=== PATIENT | male | born 1980 | race African-American/Black ===

== ENCOUNTER 2018-04-22 00:13 | Inpatient (IN) ==
[2018-04-22] MEDS ORDERED: CLINDAMYCIN INJ 600 MG in PREMIX 1 EACH IV STA (00:35)
[2018-04-22 01:18] LABS: Albumin 2.2 G/DL (3.4-5.0); Bilirubin,Total 0.9 MG/DL (0.2-1.0); Potassium 3.8 MMOL/L (3.5-5.1); Total Protein 7.6 G/DL (6.4-8.3)
[2018-04-22 01:31] LABS: Basophils % 0.1 % (0.0-0.8); Eosinophils % 0.3 % (0.00-10.9); Hemoglobin 11.2 GM/DL (14.0-18.0); Immature Granulocytes % 0.9 %; Immature Granulocytes Absolute 0.14 #; Lymphocytes # 1.3 10*3/uL (1.4-4.0); Mean Corpuscular Hemoglobin 30 PG (27-34); Mean Corpuscular Volume 93.6 FL (87-102); Mean Platelet Volume 11.4 FL (9.6-12.0); Monocytes # 1.2 10*3/uL (0.11-0.8); Monocytes % 7.3 % (1.7-12.7); Neutrophils # 13.2 10*3/uL (1.4-7.4); Neutrophils % 83.4 % (38.7-73.9); Platelet Count 285 T/CUMM (130-400); Red Blood Count 3.74 MC/CUMM (3.8-5.5); Red Cell Distribution Width 13.3 % (9.3-17.3); White Blood Count 15.8 T/CUMM (4-12)
[2018-04-22] MEDS ORDERED: ACETAMINOPHEN 325 MG TABLET PO PRN (01:42)
[2018-04-22] MEDS ORDERED: ONDANSETRON 4 MG/2 ML VIAL IV PRN ×2 (01:42→08:50)
[2018-04-22 02:03] LABS: Band Neutrophils 2 % (0-10); Lymphocytes 8 % (20-55); Segmented Neutrophils 80 % (50-85)
[2018-04-22 02:05] LABS: Platelet Estimate Adequate; Total Cells Counted 100
[2018-04-22 02:16] LABS: PT Patient Result 10.8 SECS
[2018-04-22] MEDS: PIPERACILLIN/TAZOBACTAM 3,375 MG in SODIUM CHLORIDE 0.9% 100 ML IV SCH ×3 (03:12→20:54)
[2018-04-22] MEDS: SODIUM CHLORIDE 0.45% 1,000 ML IV SCH ×3 (03:12→18:44)
[2018-04-22] MEDS ORDERED: LIDOCAINE 1%/EPI INJ 20 ML VIAL ONE (06:51)
[2018-04-22] MEDS ORDERED: BUPIVACAINE 0.5% 50 ML VIAL ONE (06:51)
[2018-04-22] MEDS ORDERED: PROPOFOL 200 MG/20 ML VIAL IV ONE (08:48)
[2018-04-22] MEDS ORDERED: fentaNYL 100 MCG/2 ML VIAL ONE (08:48)
[2018-04-22] MEDS ORDERED: MIDAZOLAM 2 MG/2 ML VIAL ONE (08:48)
[2018-04-22] MEDS ORDERED: HYDROmorphone 2 MG/1 ML VIAL ONE (08:49)
[2018-04-22] MEDS ORDERED: ONDANSETRON 4 MG/2 ML VIAL ONE (08:49)
[2018-04-22] MEDS: HYDROmorphone 2 MG/1 ML VIAL IV PRN ×4 (08:54→09:14)
[2018-04-22] MEDS: ENOXAPARIN 40 MG/0.4 ML SYRINGE SUBCUT SCH (09:58)
[2018-04-22] MEDS: PANTOPRAZOLE 40 MG TABLET PO SCH (09:59)
[2018-04-22] MEDS: amLODIPine 10 MG TABLET PO SCH (09:59)
[2018-04-22] MEDS: CARVEDILOL 25 MG TABLET PO SCH ×2 (09:59→17:25)
[2018-04-23] MEDS: SODIUM CHLORIDE 0.45% 1,000 ML IV SCH ×2 (04:02→08:25)
[2018-04-23 04:48] LABS: Basophils % 0.2 % (0.0-0.8); Eosinophils # 0.1 10*3/uL (0.0-0.87); Eosinophils % 0.9 % (0.00-10.9); Hematocrit 32.3 VOL% (42.0-52.0); Immature Granulocytes % 1.6 %; Lymphocytes # 0.9 10*3/uL (1.4-4.0); Lymphocytes % 7.1 % (21.2-54.2); Mean Corpuscular Hemoglobin 29 PG (27-34); Mean Corpuscular Volume 94.4 FL (87-102); Mean Platelet Volume 10.8 FL (9.6-12.0); Monocytes % 7.5 % (1.7-12.7); Neutrophils # 10.6 10*3/uL (1.4-7.4); Neutrophils % 82.7 % (38.7-73.9); Platelet Count 260 T/CUMM (130-400); Red Blood Count 3.42 MC/CUMM (3.8-5.5); Red Cell Distribution Width 13.6 % (9.3-17.3); White Blood Count 12.9 T/CUMM (4-12)
[2018-04-23 05:13] LABS: Calcium 8.3 MG/DL (8.5-10.1); Osmolality,Calculated 278.7 MOS/KG (273-304); Potassium 3.9 MMOL/L (3.5-5.1)
[2018-04-23] MEDS: PIPERACILLIN/TAZOBACTAM 3,375 MG in SODIUM CHLORIDE 0.9% 100 ML IV SCH ×3 (05:48→21:27)
[2018-04-23] MEDS ORDERED: FAMOTIDINE 20 MG TABLET PO ONE (06:00)
[2018-04-23] MEDS ORDERED: LIDOCAINE 1%/EPI INJ 20 ML VIAL ONE (06:39)
[2018-04-23] MEDS ORDERED: SODIUM HYPOCHLORITE 0.25% IRRIG 473 ML BOTTLE IRRIG SCH (07:00)
[2018-04-23] MEDS ORDERED: SODIUM HYPOCHLORITE 0.25% IRRIG 473 ML BOTTLE ONE (07:02)
[2018-04-23] MEDS ORDERED: LORazepam 2 MG/1 ML VIAL ONE (07:28)
[2018-04-23] MEDS ORDERED: ALBUTEROL/IPRATROPIUM 3 ML NEB RESP TX ONE (07:33)
[2018-04-23] MEDS ORDERED: PROPOFOL 200 MG/20 ML VIAL IV ONE (08:32)
[2018-04-23] MEDS ORDERED: fentaNYL 100 MCG/2 ML VIAL ONE (08:33)
[2018-04-23] MEDS ORDERED: ETOMIDATE 40 MG/20 ML VIAL IV ONE (08:33)
[2018-04-23] MEDS ORDERED: ONDANSETRON 4 MG/2 ML VIAL IV PRN (08:37)
[2018-04-23] MEDS: HYDROmorphone 2 MG/1 ML VIAL IV PRN ×2 (08:40→08:45)
[2018-04-23] MEDS ORDERED: SODIUM HYPOCHLORITE 0.25% IRR 1 APPLIC in IV BAG 1 EACH IRRIG SCH (09:00)
[2018-04-23] MEDS ORDERED: hydrALAZINE 20 MG/1 ML VIAL IV ONE (09:11)
[2018-04-23] MEDS ORDERED: hydrALAZINE 20 MG/1 ML VIAL ONE (09:12)
[2018-04-23] MEDS: CARVEDILOL 25 MG TABLET PO SCH ×2 (09:42→16:30)
[2018-04-23] MEDS: amLODIPine 10 MG TABLET PO SCH (09:43)
[2018-04-23] MEDS: PANTOPRAZOLE 40 MG TABLET PO SCH (09:43)
[2018-04-23] MEDS: ENOXAPARIN 40 MG/0.4 ML SYRINGE SUBCUT SCH (09:43)
[2018-04-23] MEDS: SODIUM HYPOCHLORITE 0.25% IRR 1 APPLIC in IV BAG 1 EACH IRRIG PRN (13:21)
[2018-04-24] MEDS: SODIUM HYPOCHLORITE 0.25% IRR 1 APPLIC in IV BAG 1 EACH IRRIG PRN ×4 (00:15→23:00)
[2018-04-24] MEDS: PIPERACILLIN/TAZOBACTAM 3,375 MG in SODIUM CHLORIDE 0.9% 100 ML IV SCH ×3 (04:20→20:54)
[2018-04-24] MEDS: CARVEDILOL 25 MG TABLET PO SCH ×2 (08:06→16:10)
[2018-04-24] MEDS: PANTOPRAZOLE 40 MG TABLET PO SCH (08:06)
[2018-04-24] MEDS: amLODIPine 10 MG TABLET PO SCH (08:06)
[2018-04-24] MEDS: ENOXAPARIN 40 MG/0.4 ML SYRINGE SUBCUT SCH (08:07)
[2018-04-24] MEDS ORDERED: SODIUM HYPOCHLORITE 0.25% IRR 1 APPLIC in IV BAG 1 EACH IRRIG SCH (09:00)
[2018-04-25] MEDS: PIPERACILLIN/TAZOBACTAM 3,375 MG in SODIUM CHLORIDE 0.9% 100 ML IV SCH ×3 (05:55→21:53)
[2018-04-25 06:13] LABS: Calcium 8.4 MG/DL (8.5-10.1); Osmolality,Calculated 286.3 MOS/KG (273-304); Potassium 4.1 MMOL/L (3.5-5.1)
[2018-04-25] MEDS: CARVEDILOL 25 MG TABLET PO SCH ×2 (08:48→16:20)
[2018-04-25] MEDS: ENOXAPARIN 40 MG/0.4 ML SYRINGE SUBCUT SCH (08:48)
[2018-04-25] MEDS: PANTOPRAZOLE 40 MG TABLET PO SCH (08:48)
[2018-04-25] MEDS: amLODIPine 10 MG TABLET PO SCH (08:48)
[2018-04-25] MEDS: SODIUM HYPOCHLORITE 0.25% IRR 1 APPLIC in IV BAG 1 EACH IRRIG PRN (10:54)
[2018-04-26] MEDS: PIPERACILLIN/TAZOBACTAM 3,375 MG in SODIUM CHLORIDE 0.9% 100 ML IV SCH ×3 (04:31→20:27)
[2018-04-26] MEDS: ENOXAPARIN 40 MG/0.4 ML SYRINGE SUBCUT SCH (08:00)
[2018-04-26] MEDS: PANTOPRAZOLE 40 MG TABLET PO SCH (08:00)
[2018-04-26] MEDS: amLODIPine 10 MG TABLET PO SCH (08:00)
[2018-04-26] MEDS: CARVEDILOL 25 MG TABLET PO SCH ×2 (08:00→16:48)
[2018-04-26] MEDS: SODIUM HYPOCHLORITE 0.25% IRR 1 APPLIC in IV BAG 1 EACH IRRIG PRN ×2 (12:45→22:19)
[2018-04-27] MEDS: PIPERACILLIN/TAZOBACTAM 3,375 MG in SODIUM CHLORIDE 0.9% 100 ML IV SCH ×3 (05:50→23:13)
[2018-04-27] MEDS: SODIUM HYPOCHLORITE 0.25% IRR 1 APPLIC in IV BAG 1 EACH IRRIG PRN (06:58)
[2018-04-27] MEDS ORDERED: LABETALOL 100 MG/20 ML VIAL IV ONE (11:02)
[2018-04-27] MEDS: HYDROmorphone 2 MG/1 ML VIAL IV PRN ×4 (11:05→11:30)
[2018-04-27] MEDS ORDERED: PROPOFOL 200 MG/20 ML VIAL IV ONE (11:08)
[2018-04-27] MEDS ORDERED: HYDROmorphone 2 MG/1 ML VIAL ONE (11:08)
[2018-04-27] MEDS ORDERED: ONDANSETRON 4 MG/2 ML VIAL ONE (11:08)
[2018-04-27] MEDS ORDERED: fentaNYL 100 MCG/2 ML VIAL ONE (11:09)
[2018-04-27] MEDS ORDERED: MIDAZOLAM 2 MG/2 ML VIAL ONE (11:09)
[2018-04-27] MEDS ORDERED: ONDANSETRON 4 MG/2 ML VIAL IV PRN (11:15)
[2018-04-27] MEDS ORDERED: hydrALAZINE 20 MG/1 ML VIAL ONE (11:31)
[2018-04-27] MEDS ORDERED: hydrALAZINE 20 MG/1 ML VIAL IV ONE (11:37)
[2018-04-27] MEDS: CARVEDILOL 25 MG TABLET PO SCH ×2 (12:23→16:27)
[2018-04-27] MEDS: ENOXAPARIN 40 MG/0.4 ML SYRINGE SUBCUT SCH (12:23)
[2018-04-27] MEDS: PANTOPRAZOLE 40 MG TABLET PO SCH (12:23)
[2018-04-27] MEDS: amLODIPine 10 MG TABLET PO SCH (12:24)
[2018-04-28 04:41] LABS: Basophils % 0.3 % (0.0-0.8); Eosinophils # 0.1 10*3/uL (0.0-0.87); Eosinophils % 1.3 % (0.00-10.9); Hematocrit 31.4 VOL% (42.0-52.0); Hemoglobin 9.7 GM/DL (14.0-18.0); Immature Granulocytes % 1.4 %; Immature Granulocytes Absolute 0.11 #; Lymphocytes # 1.3 10*3/uL (1.4-4.0); Lymphocytes % 17.1 % (21.2-54.2); Mean Corpuscular HGB Conc 30.9 GM/DL (32-36); Mean Corpuscular Hemoglobin 29 PG (27-34); Mean Platelet Volume 9.4 FL (9.6-12.0); Monocytes # 0.4 10*3/uL (0.11-0.8); Monocytes % 5.3 % (1.7-12.7); Neutrophils # 5.8 10*3/uL (1.4-7.4); Neutrophils % 74.6 % (38.7-73.9); Platelet Count 330 T/CUMM (130-400); Red Blood Count 3.34 MC/CUMM (3.8-5.5); Red Cell Distribution Width 13.2 % (9.3-17.3); White Blood Count 7.7 T/CUMM (4-12)
[2018-04-28 05:14] LABS: Calcium 8.6 MG/DL (8.5-10.1); Osmolality,Calculated 275.7 MOS/KG (273-304); Potassium 3.7 MMOL/L (3.5-5.1)
[2018-04-28] MEDS: PIPERACILLIN/TAZOBACTAM 3,375 MG in SODIUM CHLORIDE 0.9% 100 ML IV SCH ×3 (07:11→22:12)
[2018-04-28] MEDS: ENOXAPARIN 40 MG/0.4 ML SYRINGE SUBCUT SCH (09:47)
[2018-04-28] MEDS: amLODIPine 10 MG TABLET PO SCH (09:47)
[2018-04-28] MEDS: PANTOPRAZOLE 40 MG TABLET PO SCH (09:47)
[2018-04-28] MEDS: CARVEDILOL 25 MG TABLET PO SCH ×2 (09:47→18:07)
[2018-04-28] MEDS: SODIUM HYPOCHLORITE 0.25% IRR 1 APPLIC in IV BAG 1 EACH IRRIG PRN (18:10)
[2018-04-29] MEDS: PIPERACILLIN/TAZOBACTAM 3,375 MG in SODIUM CHLORIDE 0.9% 100 ML IV SCH ×2 (06:35→14:12)
[2018-04-29] MEDS: PANTOPRAZOLE 40 MG TABLET PO SCH (09:03)
[2018-04-29] MEDS: CARVEDILOL 25 MG TABLET PO SCH ×2 (09:03→16:06)
[2018-04-29] MEDS: ENOXAPARIN 40 MG/0.4 ML SYRINGE SUBCUT SCH (09:03)
[2018-04-29] MEDS: amLODIPine 10 MG TABLET PO SCH (09:03)
[2018-04-29] MEDS: SODIUM HYPOCHLORITE 0.25% IRR 1 APPLIC in IV BAG 1 EACH IRRIG PRN (21:57)
[2018-04-30] MEDS ORDERED: LACTATED RINGERS 1,000 ML IV SCH (00:01)
[2018-04-30] MEDS ORDERED: LIDOCAINE 1%/EPI INJ 20 ML VIAL ONE (06:45)
[2018-04-30] MEDS ORDERED: BUPIVACAINE 0.5% 50 ML VIAL ONE (06:45)
[2018-04-30] MEDS ORDERED: ONDANSETRON 4 MG/2 ML VIAL ONE (07:49)
[2018-04-30] MEDS ORDERED: HYDROmorphone 2 MG/1 ML VIAL ONE (07:49)
[2018-04-30] MEDS: HYDROmorphone 2 MG/1 ML VIAL IV PRN ×2 (07:51→08:05)
[2018-04-30] MEDS ORDERED: MIDAZOLAM 2 MG/2 ML VIAL ONE (07:52)
[2018-04-30] MEDS ORDERED: fentaNYL 100 MCG/2 ML VIAL ONE (07:52)
[2018-04-30] MEDS ORDERED: PROPOFOL 200 MG/20 ML VIAL IV ONE (07:52)
[2018-04-30] MEDS ORDERED: KETAMINE 500 MG/10 ML VIAL ONE (07:53)
[2018-04-30] MEDS ORDERED: SODIUM CHLORIDE 0.9% 100 ML IV ONE (07:53)
[2018-04-30] MEDS ORDERED: ONDANSETRON 4 MG/2 ML VIAL IV PRN (07:57)
[2018-04-30] MEDS ORDERED: hydrALAZINE 20 MG/1 ML VIAL ONE (08:03)
[2018-04-30] MEDS ORDERED: hydrALAZINE 20 MG/1 ML VIAL IV ONE (08:08)
[2018-04-30] MEDS: amLODIPine 10 MG TABLET PO SCH (09:27)
[2018-04-30] MEDS: CARVEDILOL 25 MG TABLET PO SCH ×2 (09:27→16:25)
[2018-04-30] MEDS: PANTOPRAZOLE 40 MG TABLET PO SCH (09:27)
[2018-04-30] MEDS: ENOXAPARIN 40 MG/0.4 ML SYRINGE SUBCUT SCH (09:28)
[2018-05-01] MEDS: ENOXAPARIN 40 MG/0.4 ML SYRINGE SUBCUT SCH (08:38)
[2018-05-01] MEDS: CARVEDILOL 25 MG TABLET PO SCH ×2 (08:45→18:06)
[2018-05-01] MEDS: PANTOPRAZOLE 40 MG TABLET PO SCH (08:45)
[2018-05-01] MEDS: amLODIPine 10 MG TABLET PO SCH (08:46)
[2018-05-02] MEDS: amLODIPine 10 MG TABLET PO SCH (08:37)
[2018-05-02] MEDS: CARVEDILOL 25 MG TABLET PO SCH ×2 (08:37→16:23)
[2018-05-02] MEDS: PANTOPRAZOLE 40 MG TABLET PO SCH (08:37)
[2018-05-02] MEDS: ENOXAPARIN 40 MG/0.4 ML SYRINGE SUBCUT SCH (08:38)
[2018-05-03] MEDS: ENOXAPARIN 40 MG/0.4 ML SYRINGE SUBCUT SCH (08:34)
[2018-05-03] MEDS: CARVEDILOL 25 MG TABLET PO SCH ×2 (08:34→16:38)
[2018-05-03] MEDS: amLODIPine 10 MG TABLET PO SCH (08:34)
[2018-05-03] MEDS: PANTOPRAZOLE 40 MG TABLET PO SCH (08:34)
[2018-05-04] MEDS ORDERED: FAMOTIDINE 20 MG TABLET PO ONE (06:00)
[2018-05-04] MEDS ORDERED: ONDANSETRON 4 MG/2 ML VIAL IV PRN (10:22)
[2018-05-04] MEDS ORDERED: hydrALAZINE 20 MG/1 ML VIAL IV ONE ×2 (10:26→10:53)
[2018-05-04] MEDS ORDERED: HYDROmorphone 2 MG/1 ML VIAL ONE (10:27)
[2018-05-04] MEDS ORDERED: hydrALAZINE 20 MG/1 ML VIAL ONE (10:28)
[2018-05-04] MEDS ORDERED: ONDANSETRON 4 MG/2 ML VIAL ONE (10:28)
[2018-05-04] MEDS: HYDROmorphone 2 MG/1 ML VIAL IV PRN ×4 (10:30→10:50)
[2018-05-04] MEDS: CARVEDILOL 25 MG TABLET PO SCH ×2 (11:23→16:23)
[2018-05-04] MEDS: amLODIPine 10 MG TABLET PO SCH (11:23)
[2018-05-04] MEDS: TELMISARTAN 40 MG TABLET PO SCH (11:24)
[2018-05-04] MEDS: ENOXAPARIN 40 MG/0.4 ML SYRINGE SUBCUT SCH (11:24)
[2018-05-04] MEDS: PANTOPRAZOLE 40 MG TABLET PO SCH (11:24)
[2018-05-05 07:34] VITALS: BP 165/95
[2018-05-05] MEDS: amLODIPine 10 MG TABLET PO SCH (08:48)
[2018-05-05] MEDS: TELMISARTAN 40 MG TABLET PO SCH (08:48)
[2018-05-05] MEDS: CARVEDILOL 25 MG TABLET PO SCH (08:49)
[2018-05-05] MEDS: ENOXAPARIN 40 MG/0.4 ML SYRINGE SUBCUT SCH (08:49)
[2018-05-05] MEDS: PANTOPRAZOLE 40 MG TABLET PO SCH (08:49)
== END 2018-05-05 11:21 | disposition home health service (06) | DRG 580 ==
LOC: N.ED 00:13 → N.EDINP 00:13 → N.2E 02:20
PROVIDERS: ADMIT Surgery; ATTEND Surgery

== ENCOUNTER 2022-02-16 21:32 | Inpatient (IN) ==
[2022-02-16] MEDS ORDERED: ASPIRIN 325 MG TABLET PO STA (21:55)
[2022-02-16] MEDS ORDERED: ONDANSETRON 4 MG/2 ML VIAL IV ONE (21:55)
[2022-02-16 22:03] LABS: Basophils % 0.5 % (0.0-0.8); Eosinophils % 0.7 % (0.00-10.9); Hematocrit 42.4 VOL% (42.0-52.0); Lymphocytes # 1.6 10*3/uL (1.4-4.0); Lymphocytes % 36.6 % (21.2-54.2); Mean Corpuscular Volume 90.6 FL (87-102); Mean Platelet Volume 10.8 FL (9.6-12.0); Monocytes # 0.3 10*3/uL (0.11-0.8); Monocytes % 7.7 % (1.7-12.7); Neutrophils % 54.5 % (38.7-73.9); Platelet Count 161 T/CUMM (130-400); Red Blood Count 4.68 MC/CUMM (3.8-5.5); Red Cell Distribution Width 13.5 % (9.3-17.3); White Blood Count 4.4 T/CUMM (4-12)
[2022-02-16 22:13] LABS: INR 0.9; PT Patient Result 10.1 SECS (10.1-12.1)
[2022-02-16 22:26] LABS: Albumin 3.4 G/DL (3.4-5.0); Bilirubin,Total 0.4 MG/DL (0.20-1.00); Calcium 9.2 MG/DL (8.5-10.1); Osmolality,Calculated 280.4 MOS/KG (273-304); Potassium 2.9 MMOL/L (3.5-5.1); Total Protein 7.5 G/DL (6.4-8.2)
[2022-02-16] MEDS ORDERED: POTASSIUM CHLORIDE 20 MEQ TABLET PO STA (22:30)
[2022-02-16] MEDS ORDERED: NITROGLYCERIN 2% OINT 1 INCH/GM PACK TOP ONE (22:35)
[2022-02-16] MEDS ORDERED: NITROGLYCERIN 2% OINT 1 INCH/GM PACK TOP STA (22:35)
[2022-02-16] MEDS ORDERED: LABETALOL 20 MG/4 ML SYRINGE IV STA (22:35)
[2022-02-16] MEDS ORDERED: LABETALOL 20 MG/4 ML SYRINGE IV ONE (22:36)
[2022-02-16] MEDS ORDERED: ENOXAPARIN 120 MG/0.8 ML SYRINGE SUBCUT STA (23:17)
[2022-02-16] MEDS ORDERED: ENOXAPARIN 30 MG/0.3 ML SYRINGE ONE (23:38)
[2022-02-17] MEDS ORDERED: LABETALOL 20 MG/4 ML SYRINGE IV STA (00:02)
[2022-02-17] MEDS ORDERED: hydrALAZINE 20 MG/1 ML VIAL IV PRN (00:21)
[2022-02-17] MEDS ORDERED: NITROGLYCERIN SL 0.4 MG TABLET SL PRN (00:21)
[2022-02-17] MEDS ORDERED: ALUMINUM/MAGNES/SIMETH MAX STR 30 ML UDCUP PO PRN (00:21)
[2022-02-17] MEDS ORDERED: VALSARTAN 80 MG TABLET PO SCH (00:26)
[2022-02-17] MEDS ORDERED: carvediloL 3.125 MG TABLET PO SCH (00:28)
[2022-02-17] MEDS: carvediloL 25 MG TABLET PO SCH ×3 (01:05→21:17)
[2022-02-17] MEDS: LOSARTAN 50 MG TABLET PO SCH ×2 (01:06→21:17)
[2022-02-17 01:35] LABS: Barbiturates Screen,Urine Negative (Negative); Benzodiazepines Screen,Urine Negative (Negative); Cannabinoid Screen,Urine Negative (Negative); Opiate Screen,Urine Negative (Negative); Phencyclidine Screen,Urine Negative (Negative)
[2022-02-17] MEDS: ONDANSETRON 4 MG/2 ML VIAL IV PRN ×2 (03:12→21:17)
[2022-02-17 04:44] LABS: Basophils % 0.2 % (0.0-0.8); Eosinophils % 0.2 % (0.00-10.9); Hematocrit 38.1 VOL% (42.0-52.0); Hemoglobin 12.4 GM/DL (14.0-18.0); Immature Granulocytes % 0.2 %; Immature Granulocytes Absolute 0.01 #; Lymphocytes % 20.9 % (21.2-54.2); Mean Corpuscular HGB Conc 32.5 GM/DL (32-36); Mean Corpuscular Volume 92.9 FL (87-102); Monocytes # 0.3 10*3/uL (0.11-0.8); Monocytes % 5.7 % (1.7-12.7); Neutrophils % 72.8 % (38.7-73.9); Platelet Count 154 T/CUMM (130-400); Red Cell Distribution Width 13.6 % (9.3-17.3); White Blood Count 4.5 T/CUMM (4-12)
[2022-02-17 05:16] LABS: Calcium 8.1 MG/DL (8.5-10.1); Osmolality,Calculated 284.3 MOS/KG (273-304); Potassium 3.3 MMOL/L (3.5-5.1); Risk Ratio 5.13; Thyroid Stimulating Hormone 1.07 uIU/ml (0.358-3.74)
[2022-02-17 05:17] LABS: INR 0.9; PT Patient Result 10.5 SECS (10.1-12.1); Partial Thromboplastin Time 36.6 SECS (23.7-32.9)
[2022-02-17] MEDS ORDERED: hydrALAZINE 25 MG TABLET PO SCH (09:00)
[2022-02-17] MEDS: DOCUSATE SODIUM 100 MG CAPSULE PO SCH ×2 (10:18→21:17)
[2022-02-17] MEDS: PANTOPRAZOLE 40 MG TABLET PO SCH (10:18)
[2022-02-17] MEDS: amLODIPine 10 MG TABLET PO SCH (10:18)
[2022-02-17] MEDS: POTASSIUM CHLORIDE 20 MEQ TABLET PO PRN ×4 (10:19→18:15)
[2022-02-17] MEDS: ROSUVASTATIN 20 MG TABLET PO SCH (10:19)
[2022-02-17] MEDS: ACETAMINOPHEN 325 MG TABLET PO PRN ×2 (10:19→14:28)
[2022-02-17] MEDS: ENOXAPARIN 100 MG/ML SYRINGE SUBCUT SCH ×2 (10:23→23:58)
[2022-02-17] MEDS ORDERED: MAGNESIUM SULF RIDER 2 GM/50 ML PREMIX IV ONE (12:52)
[2022-02-17] MEDS ORDERED: POTASSIUM CHLORIDE RIDER 10 MEQ/100 ML PREMIX IV PRN (13:03)
[2022-02-17] MEDS ORDERED: MAGNESIUM SULF RIDER 2 GM/50 ML PREMIX IV PRN (13:03)
[2022-02-18 05:08] LABS: Basophils % 0.2 % (0.0-0.8); Eosinophils % 0.6 % (0.00-10.9); Hemoglobin 12.4 GM/DL (14.0-18.0); Immature Granulocytes % 0.2 %; Immature Granulocytes Absolute 0.01 #; Lymphocytes # 1.1 10*3/uL (1.4-4.0); Mean Corpuscular HGB Conc 31.8 GM/DL (32-36); Mean Corpuscular Volume 93.3 FL (87-102); Mean Platelet Volume 10.8 FL (9.6-12.0); Monocytes # 0.4 10*3/uL (0.11-0.8); Monocytes % 7.5 % (1.7-12.7); Neutrophils % 70.5 % (38.7-73.9); Platelet Count 149 T/CUMM (130-400); Red Blood Count 4.18 MC/CUMM (3.8-5.5); Red Cell Distribution Width 13.5 % (9.3-17.3); White Blood Count 5.2 T/CUMM (4-12)
[2022-02-18 05:22] LABS: Calcium 8.9 MG/DL (8.5-10.1); Osmolality,Calculated 278.5 MOS/KG (273-304); Potassium 3.3 MMOL/L (3.5-5.1)
[2022-02-18 05:25] LABS: Albumin 2.9 G/DL (3.4-5.0); Bilirubin,Total 0.5 MG/DL (0.20-1.00); Calcium 8.9 MG/DL (8.5-10.1); Osmolality,Calculated 280.4 MOS/KG (273-304); Potassium 3.4 MMOL/L (3.5-5.1); Total Protein 6.9 G/DL (6.4-8.2)
[2022-02-18] MEDS ORDERED: DIAZEPAM 5 MG TABLET PO ONE (06:30)
[2022-02-18] MEDS ORDERED: diphenhydrAMINE CAP 50 MG CAPSULE PO ONE (06:30)
[2022-02-18] MEDS ORDERED: POTASSIUM CHLORIDE 20 MEQ TABLET PO ONE (07:17)
[2022-02-18] MEDS ORDERED: ASPIRIN EC 325 MG TABLET PO SCH (09:00)
[2022-02-18] MEDS: PANTOPRAZOLE 40 MG TABLET PO SCH (09:56)
[2022-02-18] MEDS: amLODIPine 10 MG TABLET PO SCH (09:56)
[2022-02-18] MEDS: DOCUSATE SODIUM 100 MG CAPSULE PO SCH ×2 (09:56→21:08)
[2022-02-18] MEDS: carvediloL 25 MG TABLET PO SCH ×2 (09:56→21:08)
[2022-02-18] MEDS: ROSUVASTATIN 20 MG TABLET PO SCH (09:56)
[2022-02-18] MEDS ORDERED: ACETAMINOPHEN 500 MG TABLET PO ONE (10:36)
[2022-02-18] MEDS ORDERED: hydrALAZINE 20 MG/1 ML VIAL IV ONE (10:40)
[2022-02-18] MEDS: ENOXAPARIN 100 MG/ML SYRINGE SUBCUT SCH (10:41)
[2022-02-18] MEDS ORDERED: fentaNYL 100 MCG/2 ML VIAL ONE ×2 (10:51→11:15)
[2022-02-18] MEDS ORDERED: VERAPAMIL 5 MG/2 ML VIAL ONE (10:51)
[2022-02-18] MEDS ORDERED: MIDAZOLAM 2 MG/2 ML VIAL ONE ×2 (10:51→11:14)
[2022-02-18] MEDS ORDERED: NITROGLYCERIN DRIP 50 MG/250 ML BOTTLE IV ONE (10:51)
[2022-02-18] MEDS ORDERED: hydrALAZINE 20 MG/1 ML VIAL ONE ×2 (11:13→11:30)
[2022-02-18] MEDS ORDERED: TIROFIBAN 5,000 MCG/100 ML PREMIX IV ONE ×2 (11:46→12:15)
[2022-02-18] MEDS ORDERED: TIROFIBAN 5,000 MCG/100 ML PREMIX IV SCH (11:58)
[2022-02-18] MEDS ORDERED: TICAGRELOR 90 MG TABLET ONE (12:32)
[2022-02-18] MEDS: ACETAMINOPHEN 325 MG TABLET PO PRN (13:42)
[2022-02-18] MEDS: SODIUM CHLORIDE 0.9% 1,000 ML IV SCH (13:44)
[2022-02-18] MEDS ORDERED: hydrALAZINE 20 MG/1 ML VIAL IV PRN (15:15)
[2022-02-18] MEDS ORDERED: DOXAZOSIN 1 MG TABLET PO ONE ×2 (16:18→16:45)
[2022-02-18] MEDS ORDERED: DOXAZOSIN 1 MG TABLET PO SCH ×2 (16:30→21:00)
[2022-02-18] MEDS: LOSARTAN 50 MG TABLET PO SCH (21:07)
[2022-02-18] MEDS: guaiFENesin 200 MG/10 ML UDCUP PO PRN (21:07)
[2022-02-18] MEDS: TICAGRELOR 90 MG TABLET PO SCH (21:07)
[2022-02-18] MEDS ORDERED: MELATONIN 3 MG TABLET PO ONE (22:15)
[2022-02-19] MEDS: SODIUM CHLORIDE 0.9% 1,000 ML IV SCH (00:58)
[2022-02-19 06:08] LABS: Basophils % 0.2 % (0.0-0.8); Eosinophils # 0.1 10*3/uL (0.0-0.87); Eosinophils % 0.8 % (0.00-10.9); Hematocrit 37.5 VOL% (42.0-52.0); Hemoglobin 12.3 GM/DL (14.0-18.0); Immature Granulocytes % 0.5 %; Immature Granulocytes Absolute 0.03 #; Lymphocytes % 14.7 % (21.2-54.2); Mean Corpuscular HGB Conc 32.8 GM/DL (32-36); Mean Corpuscular Volume 92.8 FL (87-102); Mean Platelet Volume 11.1 FL (9.6-12.0); Monocytes # 0.4 10*3/uL (0.11-0.8); Monocytes % 6.7 % (1.7-12.7); Neutrophils % 77.1 % (38.7-73.9); Platelet Count 164 T/CUMM (130-400); Red Blood Count 4.04 MC/CUMM (3.8-5.5); Red Cell Distribution Width 13.5 % (9.3-17.3); White Blood Count 6.5 T/CUMM (4-12)
[2022-02-19 06:37] LABS: Calcium 9.1 MG/DL (8.5-10.1); Osmolality,Calculated 279.5 MOS/KG (273-304); Potassium 3.2 MMOL/L (3.5-5.1)
[2022-02-19] MEDS ORDERED: POTASSIUM CHLORIDE 20 MEQ TABLET PO SCH (09:00)
[2022-02-19] MEDS ORDERED: ASPIRIN EC 81 MG TABLET PO SCH (09:00)
[2022-02-19] MEDS: amLODIPine 10 MG TABLET PO SCH (09:51)
[2022-02-19] MEDS: PANTOPRAZOLE 40 MG TABLET PO SCH (09:51)
[2022-02-19] MEDS: ROSUVASTATIN 20 MG TABLET PO SCH (09:51)
[2022-02-19] MEDS: TICAGRELOR 90 MG TABLET PO SCH (09:51)
[2022-02-19] MEDS: DOCUSATE SODIUM 100 MG CAPSULE PO SCH (09:51)
[2022-02-19] MEDS: guaiFENesin 200 MG/10 ML UDCUP PO PRN (09:52)
[2022-02-19] MEDS: carvediloL 25 MG TABLET PO SCH (09:52)
[2022-02-19 14:00] VITALS: BP 112/77
== END 2022-02-19 15:15 | disposition home or self-care (01) | DRG 247 ==
LOC: N.ED 21:32 → SUATTDRO 02-17 00:21 → N.EDINP 02-17 00:21 → N.TELES 02-17 07:16
PROVIDERS: ADMIT Internal Medicine; ATTEND Emergency Medicine
PROC: CLCCHCL (ICD-10-PCS; 2022-02-18 11:15)